=== PATIENT | female | born 1995 | race Caucasian/White ===

== ENCOUNTER 2017-01-03 22:11 | Emergency (ER) | payer OTHER ==
[~2017-01-03] VITALS: Ht 160 cm; Wt 46.9 kg
[2017-01-03 22:16] VITALS: Ht 160 cm; Wt 46.9 kg
[2017-01-03] MEDS ORDERED: ACETAMINOPHEN 500 MG TAB PO STA (23:26)
--- NOTE | 2017-01-03 23:32 | EMERGENCY ROOM VISIT NOTE ---
History Report prepared by Jovani: Ivania Guadarrama Under the Supervision of: Dr. Tricia Calderón D.O. 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 The patient states that she woke up with burning with urination and was initially concerned for a UTI. The patient states that she frequently gets these symptoms but that her symptoms today were more severe than normal. She states she was going to go to [employer] but did not get a chance to go. She states that she took a nap and woke up with a sore throat, body aches, chest pain, some abdominal pain, and a headache. She states that she does not normally get these symptoms and caused her to come into the ED tonight. The patient states that she also may have contracted a STD because her boyfriend could be possibly being unfaithful. The patient states that her roommate was recently diagnosed 2 days ago with strep throat and is currently on antibiotics. The patient denies any leg pain or cramping or vaginal discharge. The patient states that her last menstrual period was about 3 weeks ago. She states she did receive the flu shot this year. 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 Review of Systems See HPI for pertinent positives & negatives. A total of 10 systems reviewed and were otherwise negative. Past Medical & Surgical Medical Problems: (1) Asthma (2) H/O jaw surgery Family History Patient reports no known family medical history. Social History Smoking Status: Never Smoker Alcohol Use: occasionally Marital Status: single Housing Status: lives with roommate Occupation Status: student Current/Historical Medications Scheduled Nitrofurantoin Monohyd Macro (Macrobid), 100 MG PO BID Scheduled PRN Albuterol (Ventolin Hfa), 2 PUFFS PO QID PRN for SOB/Wheezing Fluticasone Propionate (Flovent Hfa), 2 PUFFS INH BID PRN for SORE THROAT Allergies Uncoded Allergies: PITTED FRUIT (Allergy, Unknown, MOUTH ITCHY, 01/03/17) Physical Exam Vital Signs Date Time Temp Pulse Resp B/P Pulse Ox O2 Delivery O2 Flow Rate FiO2 01/04/17 02:49 68 18 117/72 98 Room Air 01/04/17 02:00 85 16 119/79 99 Room Air 01/04/17 00:15 36.7 82 18 121/83 99 Room Air 01/03/17 22:16 36.7 82 18 127/84 98 Room Air Physical Exam HEENT: Head - normocephalic and atraumatic Pupils are equal, round, and reactive to light. Extraocular eye muscles are intact, and sclera are anicteric. Nose - moist nasal mucosa without discharge. Mouth - moist buccal mucosa. Oropharynx is nonerythematous and there is no tonsillar exudate or edema noted. Neck: Supple; no JVD, nuchal rigidity, cervical lymphadenopathy. Heart: Regular rate and rhythm. There is a normal S1 and S2 with no murmurs, clicks, or gallops appreciated. Lungs: Clear to auscultation bilaterally with no wheezes, rales, or rhonchi. Abdomen: Soft, completely nontender, nondistended, with good bowel sounds. There are no palpable pulsatile masses or hepatosplenomegaly. There is no guarding, rigidity, or rebound noted. Extremities: No evidence of cyanosis, clubbing, or edema. There are easily palpable peripheral pulses. Skin: warm and dry with good turgor and no rashes. Pelvic: On speculum examination, there was moderate thick white vaginal discharge with no obvious odor. The cervix appeared to be slightly erythematous and excoriated. On bimanual examination, there was no cervical motion tenderness and no adnexal tenderness noted. Medical Decision & Procedures Laboratory Results 01/03/17 23:50 Red Blood Count 4.54, Mean Corpuscular Volume 86.3, Mean Corpuscular Hemoglobin 29.3, Mean Corpuscular Hemoglobin Concent 33.9, Mean Platelet Volume 9.9, Neutrophils (%) (Auto) 51.1, Lymphocytes (%) (Auto) 33.3, Monocytes (%) (Auto) 12.2, Eosinophils (%) (Auto) 2.5, Basophils (%) (Auto) 0.8, Neutrophils # (Auto ) 4.50, Lymphocytes # (Auto) 2.94, Monocytes # (Auto) 1.08, Eosinophils # (Auto ) 0.22, Basophils # (Auto) 0.07 01/03/17 23:50 Test 01/03/17 23:15 01/03/17 23:50 01/04/17 00:07 01/04/17 01:40 Urine Color DK YELLOW Urine Appearance CLEAR (CLEAR) Urine pH 6.5 (4.5-7.5) Urine Specific [place] 1.013 (1.000-1.030) Urine Protein NEG (NEG) Urine Glucose (UA) NEG (NEG) Urine Ketones NEG (NEG) Urine Occult Blood NEG (NEG) Urine Nitrite POS (NEG) Urine Bilirubin NEG (NEG) Urine Urobilinogen NEG (NEG) Urine Leukocyte Esterase TRACE (NEG) Urine WBC (Auto) 5-10 /hpf (0-5) Urine RBC (Auto) 5-10 /hpf (0-4) Urine Hyaline Casts (Auto) 1-5 /lpf (0-5) Urine Epithelial Cells (Auto) >30 /lpf (0-5) Urine Bacteria (Auto) NEG (NEG) Urine Test NEG (NEG) White Blood Count 8.82 K/uL (4.8-10.8) Red Blood Count 4.54 M/uL (4.2-5.4) Hemoglobin 13.3 g/dL (12.0-16.0) Hematocrit 39.2 % (37-47) Mean Corpuscular Volume 86.3 fL (80-100) Mean Corpuscular Hemoglobin 29.3 pg (25-34) Mean Corpuscular Hemoglobin Concent 33.9 g/dl (32-36) Platelet Count 319 K/uL (130-400) Mean Platelet Volume 9.9 fL (7.4-10.4) Neutrophils (%) (Auto) 51.1 % Lymphocytes (%) (Auto) 33.3 % Monocytes (%) (Auto) 12.2 % Eosinophils (%) (Auto) 2.5 % Basophils (%) (Auto) 0.8 % Neutrophils # (Auto) 4.50 K/uL (1.4-6.5) Lymphocytes # (Auto) 2.94 K/uL (1.2-3.4) Monocytes # (Auto) 1.08 K/uL (0.11-0.59) Eosinophils # (Auto) 0.22 K/uL (0-0.5) Basophils # (Auto) 0.07 K/uL (0-0.2) RDW Standard Deviation 42.5 fL (36.4-46.3) RDW Coefficient of Variation 13.4 % (11.5-14.5) Immature Granulocyte % (Auto) 0.1 % Immature Granulocyte # (Auto) 0.01 K/uL (0.00-0.02) Anion Gap 9.0 mmol/L (3-11) Est Creatinine Clear Calc Drug Dose 70.1 ml/min Estimated GFR () 100.5 Estimated GFR (Non- 86.7 BUN/Creatinine Ratio 6.4 (10-20) Calcium Level 9.3 mg/dl (8.5-10.1) Monoscreen NEG (NEG) Influenza Type A Antigen Neg for Influ A (NEG) Influenza Type B Antigen Neg for Influ B (NEG) Laboratory results per my review. Medications Administered Medications (Trade) Dose Ordered Sig/Sukhdeep Route Start Time Stop Time Status Last Admin Dose Admin Acetaminophen (Tylenol Tab) 1,000 mg NOW STAT PO 01/03/17 23:26 01/03/17 23:29 DC 01/03/17 23:47 1,000 MG Nitrofurantoin Macrocrystals (Macrobid Cap) 100 mg ONE ONCE PO 01/04/17 02:45 01/04/17 02:46 DC 01/04/17 02:45 100 MG Procedure Medications Administered: Acetaminophen Macrobid ED Course 2321: Past medical records reviewed. The patient was evaluated in room A10. A complete history and physical exam was performed. Laboratory studies were drawn as above. A urine specimen was obtained. 2326: Ordered Tylenol Tab 1,000 mg PO. 0120: I reevaluated the patient and she was hemodynamically stable She wishes to have the STD testing done while she is here. She states that her headache is significantly improved after receiving the Tylenol. 0130: I performed a pelvic exam on the patient. 0245: Ordered Macrobid Cap 100 mg PO. 0250: Upon reevaluation, the patient is hemodynamically stable. I discussed findings and results with her. She verbalized agreement of the treatment plan. The patient was discharged home. Medical Decision The patient is a 21 year old female who presents to the ED with urinary symptoms. Differential diagnosis includes but is not limited to mononucleosis, strep, UTI, influenza, viral illness, STD and STI. Labs: Negative Mononucleosis Negative influenza Urine negative Positive nitrates Positive Leukocyte esterase 5-10 White blood cells Normal renal function and glucose No leukocytosis Stable H&H Trichomoniasis stain negative Gram staining preliminary genital cervical gram stain. Moderate gram stain positive bacillus. Moderate white blood cells. No clue cells. Moderate epithelial cells. Urinalysis revealed evidence of a urinary tract infection. Preliminary cervical Gram stain testing was inconclusive. Trichomonas was negative. Those results will be finalized in 48 hours. The patient was started on Macrobid for her urine. She is feeling much better at this time. She was asked to follow- up with student services if symptoms persist. Impression Primary Impression: UTI (urinary tract infection) Scribe Attestation The scribe's documentation has been prepared under my direction and personally reviewed by me in its entirety. I confirm that the note above accurately reflects all work, treatment, procedures, and medical decision making performed by me. Departure Information Dispostion Home / Self-Care Prescriptions Nitrofurantoin Monohyd Macro (MACROBID) 100 Mg Cap 100 MG PO BID, #20 CAP Prov: Tricia Calderón D.O. 01/04/17 Referrals [facility] (PCP) Forms HOME CARE DOCUMENTATION FORM, IMPORTANT VISIT INFORMATION, WORK / SCHOOL INSTRUCTIONS Patient Instructions [facility] Additional Instructions Rest. Macrobid - every 12 hours for for 5 days Follow up on for STD culture results - [id number] Return to the ER for any worsening symptoms
[2017-01-03] MEDS ORDERED: PRVHFAIN PO (23:37)
[2017-01-03] MEDS ORDERED: FLVHFA110 INH (23:37)
[2017-01-04 00:11] LABS: BASO % 0.8 %; BASO ABS # 0.07 K/uL (0-0.2); COMPLETE YES; EOS % 2.5 %; HEMATOCRIT 39.2 % (37-47); IG% 0.1 %; LYMPH % 33.3 %; LYMPH ABS # 2.94 K/uL (1.2-3.4); MEAN CELL VOLUME 86.3 fL (80-100); MEAN CORPUSCULAR HEMOGLOBIN 29.3 pg (25-34); MEAN CORPUSCULAR HGB CONC 33.9 g/dl (32-36); MEAN PLATELET VOLUME 9.9 fL (7.4-10.4); MONO % 12.2 %; NEUT % 51.1 %; PLATELET COUNT 319 K/uL (130-400); RED BLOOD COUNT 4.54 M/uL (4.2-5.4); WHITE BLOOD COUNT 8.82 K/uL (4.8-10.8)
[2017-01-04 00:15] VITALS: TEMP 36.7
[2017-01-04 00:33] LABS: URINE APPEARANCE CLEAR (CLEAR); URINE BILIRUBIN NEG (NEG); URINE COLOR DK YELLOW; URINE EPITHELIAL CELL AUTO >30 /lpf (0-5); URINE NITRITE POS (NEG); URINE PH 6.5 (4.5-7.5); URINE SPECIFIC GRAVITY 1.013 (1.000-1.030); UROBILINOGEN NEG (NEG)
[2017-01-04 00:33] LABS: BUN/CREATININE RATIO 6.4 (10-20); CALCIUM 9.3 mg/dl (8.5-10.1); CREATININE 0.94 mg/dl (0.60-1.20); POTASSIUM 3.3 mmol/L (3.5-5.1)
[2017-01-04 00:44] LABS: MANUAL MICROSCOPIC REQUIRED? NO; REVIEW REQ? NO
[2017-01-04] MEDS ORDERED: NITROFURANTOIN MONOHYDRATE 100 MG CAP PO ONE (02:45)
[2017-01-04 02:49] VITALS: BP 117/72; PULSE 68; O2SAT 98
[2017-01-04] MEDS ORDERED: NITR1CAP16 PO (02:50)
[2017-01-06 01:17] LABS: CHLAMYDIA TRACH RNA*** NOT DETECTED (NOT DETECTED); GC (NEIS GONORRHOEAE)RNA** NOT DETECTED (NOT DETECTED)
--- NOTE | 2017-01-06 14:55 | Pharmacy Progress Note ---
ED Pharmacist Culture FollowUp Date of Service: Jan 06, 2017. Group B beta Strep isolated in throat culture. Physical exam not consistent w Strep throat per Dr. Calderón. Likely contaminant. No intervention required. Case discussed w Dr. Calderón.
== END 2017-01-04 02:56 | disposition home or self-care (01) ==
LOC: C.EDB 22:13 → C.EDA 01-04 02:56
DX: N39.0 Urinary tract infection, site not specified (principal); J45.909 Unspecified asthma, uncomplicated